=== PATIENT | female | born 1980 | race American Indian/Alaskan Native ===

== ENCOUNTER 2018-12-17 14:04 | Emergency (ER) | payer OTHER ==
[2018-12-17 14:25] VITALS: BP 181/112
--- NOTE | 2018-12-17 14:42 | Emergency Department Report ---
ED ENT HPI - General Chief complaint: Skin/Abscess/Foreign Body Stated complaint: TOOTHACHE Time Seen by Provider: 12/17/18 14:35 Source: patient Mode of arrival: Ambulatory Limitations: No Limitations - History of Present Illness MD complaint: tooth pain -: Gradual, days(s) (3) Location: tooth # Severity: moderate Quality: dull, constant Context- Dental: history of dental caries, poor dental care Associated Symptoms: toothache. denies: sore throat, tinnitus, rhinorrhea - Related Data Previous Rx's Medication Instructions Recorded Last Taken Type Acetaminophen/Codeine [Tylenol #3] 1 tab PO Q6H PRN #10 tab 12/17/18 Unknown Rx Amoxicillin 500 mg PO QID #40 capsule 12/17/18 Unknown Rx Chlorhexidine Mouthwash [Peridex] 15 ml MM BID #473 bottle 12/17/18 Unknown Rx Lidocaine Viscous 2% 5 ml MM Q3H PRN #120 udc 12/17/18 Unknown Rx Allergies Allergy/AdvReac Type Severity Reaction Status Date / Time No Known Allergies Allergy Unverified 12/17/18 14:05 ED Dental HPI - General Chief complaint: Skin/Abscess/Foreign Body Stated complaint: TOOTHACHE Time Seen by Provider: 12/17/18 14:35 Source: patient Mode of arrival: Ambulatory Limitations: No Limitations - Related Data Previous Rx's Medication Instructions Recorded Last Taken Type Acetaminophen/Codeine [Tylenol #3] 1 tab PO Q6H PRN #10 tab 12/17/18 Unknown Rx Amoxicillin 500 mg PO QID #40 capsule 12/17/18 Unknown Rx Chlorhexidine Mouthwash [Peridex] 15 ml MM BID #473 bottle 12/17/18 Unknown Rx Lidocaine Viscous 2% 5 ml MM Q3H PRN #120 udc 12/17/18 Unknown Rx Allergies Allergy/AdvReac Type Severity Reaction Status Date / Time No Known Allergies Allergy Unverified 12/17/18 14:05 ED Review of Systems ROS: Stated complaint: TOOTHACHE Other details as noted in HPI Constitutional: denies: chills, fever Eyes: denies: eye pain, eye discharge, vision change ENT: dental pain. denies: ear pain, throat pain Respiratory: denies: cough, shortness of breath, wheezing Cardiovascular: denies: chest pain, palpitations Endocrine: no symptoms reported Gastrointestinal: denies: abdominal pain, nausea, diarrhea Genitourinary: denies: urgency, dysuria, discharge Musculoskeletal: denies: back pain, joint swelling, arthralgia Skin: denies: rash, lesions Neurological: denies: headache, weakness, paresthesias Psychiatric: denies: anxiety, depression Hematological/Lymphatic: denies: easy bleeding, easy bruising ED Past Medical Hx - Past Medical History Previous Medical History?: No - Surgical History Past Surgical History?: Yes Additional Surgical History: C/S - Medications Home Medications: Home Medications Medication Instructions Recorded Confirmed Last Taken Type Acetaminophen/Codeine [Tylenol #3] 1 tab PO Q6H PRN #10 tab 12/17/18 Unknown Rx Amoxicillin 500 mg PO QID #40 capsule 12/17/18 Unknown Rx Chlorhexidine Mouthwash [Peridex] 15 ml MM BID #473 bottle 12/17/18 Unknown Rx Lidocaine Viscous 2% 5 ml MM Q3H PRN #120 udc 12/17/18 Unknown Rx ED Physical Exam - General Limitations: No Limitations General appearance: alert, in no apparent distress - Head Head exam: Present: atraumatic, normocephalic - Eye Eye exam: Present: normal appearance, PERRL, EOMI Pupils: Present: normal accommodation - ENT ENT exam: Present: mucous membranes moist, other (swelling to left lower molar wit severe errosion to dentition and gingivitis) - Neck Neck exam: Present: normal inspection, full ROM. Absent: meningismus, lymphadenopathy - Respiratory Respiratory exam: Present: normal lung sounds bilaterally. Absent: respiratory distress, wheezes, rales, rhonchi, chest wall tenderness, accessory muscle use, decreased breath sounds, prolonged expiratory - Cardiovascular Cardiovascular Exam: Present: regular rate, normal rhythm. Absent: systolic murmur, diastolic murmur, rubs, gallop - GI/Abdominal GI/Abdominal exam: Present: soft, normal bowel sounds - Extremities Exam Extremities exam: Present: normal inspection - Back Exam Back exam: Present: normal inspection - Neurological Exam Neurological exam: Present: alert, oriented X3 - Psychiatric Psychiatric exam: Present: normal affect, normal mood - Skin Skin exam: Present: warm, dry, intact, normal color. Absent: rash ED Course Vital Signs 12/17/18 12/17/18 14:22 14:25 Temperature 98.3 F Pulse Rate 91 H Respiratory 14 Rate Blood Pressure 181/112 O2 Sat by Pulse 100 Oximetry Critical care attestation.: If time is entered above; I have spent that time in minutes in the direct care of this critically ill patient, excluding procedure time. ED Disposition Clinical Impression: Dentalgia Disposition: TO HOME OR SELFCARE Is pt being admited?: No Does the pt Need Aspirin: No Condition: Stable Instructions: Dental Caries (ED), Toothache (ED), Dental Abscess (ED) Prescriptions: Amoxicillin 500 mg PO QID #40 capsule Lidocaine Viscous 2% 5 ml MM Q3H PRN #120 udc PRN Reason: Pain, Moderate (4-6) Chlorhexidine Mouthwash [Peridex] 15 ml MM BID #473 bottle Acetaminophen/Codeine [Tylenol #3] 1 tab PO Q6H PRN #10 tab PRN Reason: Pain Referrals: [facility] [Outside] - 3-5 Days
== END 2018-12-17 14:45 | disposition home or self-care (01) ==
LOC: ED 14:04
DX: K08.89 Other specified disorders of teeth and supporting structures (principal)
CPT/HCPCS: 99282

== ENCOUNTER 2019-01-22 10:12 | Emergency (ER) | payer OTHER ==
[2019-01-22 12:17] VITALS: BP 137/88
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
== END 2019-01-22 12:38 | disposition home or self-care (01) ==
LOC: ED 10:12
DX: S46.912A Strain of unspecified muscle, fascia and tendon at shoulder and upper arm level, left arm, initial encounter (principal); V89.2XXA Person injured in unspecified motor-vehicle accident, traffic, initial encounter; Y93.89 Activity, other specified; Y92.488 Other paved roadways as the place of occurrence of the external cause; Y99.8 Other external cause status
CPT/HCPCS: 99282

== ENCOUNTER 2019-05-20 08:44 | Emergency (ER) | payer SELFPAY ==
[2019-05-20 08:55] VITALS: BP 160/105
[2019-05-20 09:44] LABS: Bilirubin,Urine NEG (Negative); Blood,Urine LG (Negative); Color,Urine Yellow (Yellow); Mucus,Urine 1+ /HPF; Urobilinogen,Urine < 2.0 mg/dL (<2.0)
[2019-05-20 09:53] LABS: RBC,Urine > 182.0 /HPF (0.0-6.0)
[2019-05-20 11:00] LABS: HCG Qualitative,Urine Negative (Negative)
--- NOTE | 2019-05-20 11:03 | Emergency Department Report ---
Blank Doc - Documentation Documentation: This is a 38-year-old female sent in for urinary symptoms as per director of casinoSravan nunez I entered the patient's room, patient was not there. I did not speak or exam the patient. I called the patient and to follow number listed the patient did not answer and a phone number was also incorrect. Patient left AGAINST MEDICAL ADVICE without seeing a provider.
== END 2019-05-20 11:02 | disposition left against medical advice (07) ==
LOC: ED 08:44
DX: R35.0 Frequency of micturition (principal); R30.0 Dysuria; Z53.21 Procedure and treatment not carried out due to patient leaving prior to being seen by health care provider
CPT/HCPCS: 81001; 81025

== ENCOUNTER 2019-05-23 09:37 | Emergency (ER) | payer SELFPAY ==
--- NOTE | 2019-05-23 10:29 | Emergency Department Report ---
ED Female HPI - General Chief complaint: Urogenital-Female Stated complaint: DISCHARGE/ABD PAIN Time Seen by Provider: 05/23/19 10:17 Source: patient Mode of arrival: Ambulatory Limitations: No Limitations - History of Present Illness Initial comments: Ivelisse is a very pleasant 38-year-old female who presents with UTI symptoms and vaginal irritations. Recently diagnosed with UTI. However she was unable to wait until she completed her treatment 2 days ago. Now Sunday. Minor symptoms. According to try medical record, urinalysis showed copious amount of red cells. test negative. MD Complaint: vaginal discharge, dysuria -: Gradual, days(s) (3) Severity: mild Quality: burning Consistency: constant Worsens with: urination Are you Now?: No Associated Symptoms: vaginal discharge - Related Data Previous Rx's Medication Instructions Recorded Last Taken Type Acetaminophen/Codeine [Tylenol #3] 1 tab PO Q6H PRN #10 tab 12/17/18 Unknown Rx Amoxicillin 500 mg PO QID #40 capsule 12/17/18 Unknown Rx Chlorhexidine Mouthwash [Peridex] 15 ml MM BID #473 bottle 12/17/18 Unknown Rx Lidocaine Viscous 2% 5 ml MM Q3H PRN #120 udc 12/17/18 Unknown Rx Methocarbamol [Robaxin-750] 750 mg PO Q6HR PRN #20 tablet 01/22/19 Unknown Rx Naproxen [Naprosyn] 500 mg PO BID #20 tablet 01/22/19 Unknown Rx Fluconazole [Diflucan TAB] 150 mg PO ONCE #1 tablet 05/23/19 Unknown Rx cephALEXin [Keflex] 500 mg PO Q6HR 7 Days #28 capsule 05/23/19 Unknown Rx metroNIDAZOLE [Flagyl TAB] 500 mg PO Q12HR 7 Days #14 tab 05/23/19 Unknown Rx Allergies Allergy/AdvReac Type Severity Reaction Status Date / Time No Known Allergies Allergy Unverified 12/17/18 14:05 ED Review of Systems ROS: Stated complaint: DISCHARGE/ABD PAIN Other details as noted in HPI Constitutional: denies: fever, malaise Gastrointestinal: denies: abdominal pain, nausea Genitourinary: dysuria, discharge ED Past Medical Hx - Past Medical History Previous Medical History?: No - Surgical History Past Surgical History?: Yes Additional Surgical History: C section - Social History Smoking Status: Never Smoker Substance Use Type: None - Medications Home Medications: Home Medications Medication Instructions Recorded Confirmed Last Taken Type Acetaminophen/Codeine [Tylenol #3] 1 tab PO Q6H PRN #10 tab 12/17/18 Unknown Rx Amoxicillin 500 mg PO QID #40 capsule 12/17/18 Unknown Rx Chlorhexidine Mouthwash [Peridex] 15 ml MM BID #473 bottle 12/17/18 Unknown Rx Lidocaine Viscous 2% 5 ml MM Q3H PRN #120 udc 12/17/18 Unknown Rx Methocarbamol [Robaxin-750] 750 mg PO Q6HR PRN #20 tablet 01/22/19 Unknown Rx Naproxen [Naprosyn] 500 mg PO BID #20 tablet 01/22/19 Unknown Rx Fluconazole [Diflucan TAB] 150 mg PO ONCE #1 tablet 05/23/19 Unknown Rx cephALEXin [Keflex] 500 mg PO Q6HR 7 Days #28 capsule 05/23/19 Unknown Rx metroNIDAZOLE [Flagyl TAB] 500 mg PO Q12HR 7 Days #14 tab 05/23/19 Unknown Rx ED Physical Exam - General Limitations: No Limitations General appearance: alert, in no apparent distress - GI/Abdominal GI/Abdominal exam: Present: soft. Absent: distended, tenderness, guarding, rebound - Neurological Exam Neurological exam: Present: alert, oriented X3 - Psychiatric Psychiatric exam: Present: normal mood - Skin Skin exam: Present: warm, dry, intact, normal color ED Course Vital Signs 05/23/19 09:44 Temperature 98.9 F Pulse Rate 76 Respiratory 16 Rate Blood Pressure 143/89 O2 Sat by Pulse 99 Oximetry ED Medical Decision Making - Medical Decision Making Clinical impression: UTI, vaginitis Prescriptions were fluconazole, cephalexin and Metronidazole provided Critical care attestation.: If time is entered above; I have spent that time in minutes in the direct care of this critically ill patient, excluding procedure time. ED Disposition Clinical Impression: UTI (urinary tract infection), Vaginitis Disposition: TO HOME OR SELFCARE Is pt being admited?: No Does the pt Need Aspirin: No Condition: Stable Instructions: Urinary Tract Infection in Women (ED), Vaginitis (ED) Prescriptions: Fluconazole [Diflucan TAB] 150 mg PO ONCE #1 tablet metroNIDAZOLE [Flagyl TAB] 500 mg PO Q12HR 7 Days #14 tab cephALEXin [Keflex] 500 mg PO Q6HR 7 Days #28 capsule Referrals: VANE BRUNO MD [Primary Care Provider] - 3-5 Days Forms: Work/School Release Form(ED)
[2019-05-23 10:43] VITALS: BP 140/90
== END 2019-05-23 10:39 | disposition home or self-care (01) ==
LOC: ED 09:37
DX: N39.0 Urinary tract infection, site not specified (principal); N76.0 Acute vaginitis; Z79.899 Other long term (current) drug therapy
CPT/HCPCS: 99282

== ENCOUNTER 2020-11-29 19:03 | Emergency (ER) | payer SELFPAY ==
[2020-11-29 19:40] VITALS: BP 179/100
[2020-11-29 20:24] LABS: Bilirubin,Urine NEG (Negative); Blood,Urine LG (Negative); Color,Urine Yellow (Yellow); Urobilinogen,Urine < 2.0 mg/dL (<2.0)
[2020-11-29 20:25] LABS: RBC,Urine > 182.0 /HPF (0.0-6.0)
[2020-11-29 20:31] LABS: HCG Qualitative,Urine Negative (Negative)
--- NOTE | 2020-11-29 20:46 | Emergency Department Report ---
ED Female HPI - General Chief complaint: Abdominal Pain Stated complaint: BLOOD IN URINE Time Seen by Provider: 11/29/20 19:42 Source: patient Mode of arrival: Ambulatory Limitations: No Limitations - History of Present Illness Initial comments: This is a 40-year-old female nontoxic, well nourished in appearance, no acute signs of distress presents to the ED with c/o of dysuria, hematuria, polyuria, and urinary frequency x several days. Patient stated she history of frequent UTIs and similar symptoms today. Patient denies any vaginal discharge, bleeding, ulcers or lesions. Patient denies any back or flank pain. Patient denies any pelvic or abdominal pain. Patient denies any nausea, vomiting, chest pain, shortness of breathe, fever, chills, headache, back pain, numbness, tingling, stiff neck. Patient denies any urinary symptoms. Patient denies any allergies or PMH. MD Complaint: dysuria -: days(s) Radiation: non-radiating Severity: mild Severity scale (0 -10): 3 Quality: burning Consistency: constant Improves with: none Worsens with: urination Are you Now?: No Associated Symptoms: dysuria, hematuria. denies: vaginal discharge, vaginal bleeding, abdominal pain, nausea/vomiting, fever/chills, headaches, loss of appetite, rash, seizure, shortness of breath, syncope, weakness - Related Data Previous Rx's Medication Instructions Recorded Last Taken Type Acetaminophen/Codeine [Tylenol #3] 1 tab PO Q6H PRN #10 tab 12/17/18 Unknown Rx Amoxicillin 500 mg PO QID #40 capsule 12/17/18 Unknown Rx Chlorhexidine Mouthwash [Peridex] 15 ml MM BID #473 bottle 12/17/18 Unknown Rx Lidocaine Viscous 2% 5 ml MM Q3H PRN #120 udc 12/17/18 Unknown Rx Methocarbamol [Robaxin-750] 750 mg PO Q6HR PRN #20 tablet 01/22/19 Unknown Rx Naproxen [Naprosyn] 500 mg PO BID #20 tablet 01/22/19 Unknown Rx Fluconazole (Nf) [Diflucan TAB] 150 mg PO ONCE #1 tablet 05/23/19 Unknown Rx cephALEXin [Keflex] 500 mg PO Q6HR 7 Days #28 capsule 05/23/19 Unknown Rx metroNIDAZOLE [Flagyl TAB] 500 mg PO Q12HR 7 Days #14 tab 05/23/19 Unknown Rx cephALEXin [Keflex] 500 mg PO Q6HR #28 capsule 11/29/20 Unknown Rx Allergies Allergy/AdvReac Type Severity Reaction Status Date / Time No Known Allergies Allergy Unverified 12/17/18 14:05 ED Review of Systems ROS: Stated complaint: BLOOD IN URINE Other details as noted in HPI Comment: All other systems reviewed and negative Constitutional: denies: chills, fever Eyes: denies: eye pain, eye discharge, vision change ENT: denies: ear pain, throat pain Respiratory: denies: cough, shortness of breath, wheezing Cardiovascular: denies: chest pain, palpitations Endocrine: no symptoms reported Gastrointestinal: denies: abdominal pain, nausea, diarrhea Genitourinary: dysuria, frequency, hematuria. denies: urgency, discharge, abnormal menses, dyspareunia Musculoskeletal: denies: back pain, joint swelling, arthralgia Skin: denies: rash, lesions Neurological: denies: headache, weakness, paresthesias Psychiatric: denies: anxiety, depression Hematological/Lymphatic: denies: easy bleeding, easy bruising ED Past Medical Hx - Surgical History Additional Surgical History: C section - Social History Smoking Status: Never Smoker Substance Use Type: None - Medications Home Medications: Home Medications Medication Instructions Recorded Confirmed Last Taken Type Acetaminophen/Codeine [Tylenol #3] 1 tab PO Q6H PRN #10 tab 12/17/18 Unknown Rx Amoxicillin 500 mg PO QID #40 capsule 12/17/18 Unknown Rx Chlorhexidine Mouthwash [Peridex] 15 ml MM BID #473 bottle 12/17/18 Unknown Rx Lidocaine Viscous 2% 5 ml MM Q3H PRN #120 udc 12/17/18 Unknown Rx Methocarbamol [Robaxin-750] 750 mg PO Q6HR PRN #20 tablet 01/22/19 Unknown Rx Naproxen [Naprosyn] 500 mg PO BID #20 tablet 01/22/19 Unknown Rx Fluconazole (Nf) [Diflucan TAB] 150 mg PO ONCE #1 tablet 05/23/19 Unknown Rx cephALEXin [Keflex] 500 mg PO Q6HR 7 Days #28 capsule 05/23/19 Unknown Rx metroNIDAZOLE [Flagyl TAB] 500 mg PO Q12HR 7 Days #14 tab 08/16/19 Unknown Rx cephALEXin [Keflex] 500 mg PO Q6HR #28 capsule 11/29/20 Unknown Rx ED Physical Exam - General Limitations: No Limitations General appearance: alert, in no apparent distress - Head Head exam: Present: atraumatic, normocephalic - Eye Eye exam: Present: normal appearance - Neck Neck exam: Present: normal inspection, full ROM - Respiratory Respiratory exam: Absent: respiratory distress - Cardiovascular Cardiovascular Exam: Present: regular rate - GI/Abdominal GI/Abdominal exam: Present: soft. Absent: distended, tenderness - Extremities Exam Extremities exam: Present: full ROM - Back Exam Back exam: Present: normal inspection, full ROM. Absent: tenderness, CVA tenderness (R), CVA tenderness (L), muscle spasm, paraspinal tenderness, vertebral tenderness, rash noted - Neurological Exam Neurological exam: Present: alert, oriented X3, normal gait - Psychiatric Psychiatric exam: Present: normal affect, normal mood - Skin Skin exam: Present: warm, dry, intact, normal color. Absent: rash ED Course Vital Signs 11/29/20 19:37 Temperature 98.6 F Pulse Rate 75 Respiratory 18 Rate Blood Pressure 179/100 [Right] - Reevaluation(s) Reevaluation #1: 11/29/20 20:43 Patient is speaking in full sentences with no signs of distress noted. ED Medical Decision Making - Lab Data Lab Results 11/29/20 Range/Units 20:07 Urine Color Yellow (Yellow) Urine Turbidity Slightly-cloudy (Clear) Urine pH 7.0 (5.0-7.0) Ur Specific [place] 1.017 (1.003-1.030) Urine Protein 30 mg/dl (Negative) mg/dL Urine Glucose (UA) Neg (Negative) mg/dL Urine Ketones Neg (Negative) mg/dL Urine Blood Lg (Negative) Urine Nitrite Neg (Negative) Urine Bilirubin Neg (Negative) Urine Urobilinogen < 2.0 (<2.0) mg/dL Ur Leukocyte Esterase Neg (Negative) Urine WBC (Auto) 12.0 H (0.0-6.0) /HPF Urine RBC (Auto) > 182.0 (0.0-6.0) /HPF U Epithel Cells (Auto) 5.0 (0-13.0) /HPF Urine HCG, Qual Negative (Negative) - Medical Decision Making This is a 40-year-old female that presents with UTI. Patient is stable and was examined by me. UA obtained. No signs or symptoms of renal calculus. Patient does not have any CVA tenderness. No signs or symptoms of pyelonephritis. Patient be treated with Keflex. Patient was instructed to Follow-up with a primary care doctor in 3-5 days or if symptoms worsen and continue return to emergency room as soon as possible. At time of discharge, the patient does not seem toxic or ill in appearance. No acute signs of distress noted. Patient agrees to discharge treatment plan of care. No further questions noted by the patient. Critical care attestation.: If time is entered above; I have spent that time in minutes in the direct care of this critically ill patient, excluding procedure time. ED Disposition Clinical Impression: UTI (urinary tract infection) Qualifiers: Urinary tract infection type: acute cystitis Hematuria presence: with hematuria Qualified Code(s): N30.01 - Acute cystitis with hematuria Disposition: TO HOME OR SELFCARE Is pt being admited?: No Does the pt Need Aspirin: No Condition: Stable Instructions: Abdominal Pain (ED), Urinary Tract Infection, Adult Additional Instructions: Follow-up with a primary care doctor in 3-5 days or if symptoms worsen and continue return to emergency room as soon as possible. Prescriptions: cephALEXin [Keflex] 500 mg PO Q6HR #28 capsule Referrals: PRIMARY CAREMD [Referring] - 3-5 Days NOHEMY KAPLAN MD [Staff Physician] - 3-5 Days Forms: Work/School Release Form(ED) Time of Disposition: 20:47
== END 2020-11-29 21:12 | disposition home or self-care (01) ==
LOC: ED 19:03
DX: N39.0 Urinary tract infection, site not specified (principal); Z98.890 Other specified postprocedural states; Z79.2 Long term (current) use of antibiotics; Z79.899 Other long term (current) drug therapy
CPT/HCPCS: 81001; 81025; 87086